=== PATIENT | female | born 1965 | race Caucasian/White ===

== ENCOUNTER 2025-01-11 17:38 | Emergency (ER) | payer OTHER ==
[~2025-01-11] VITALS: Ht 160 cm; Wt 60.0 kg
[2025-01-11] MEDS ORDERED: LIDO1ADH93 TD (21:00)
[2025-01-11] MEDS ORDERED: METH-1164 PO (21:00)
[2025-01-11] MEDS ORDERED: MEDR4PAK PO (21:03)
[2025-01-11] MEDS: METHOCARBAMOL 1,000 MG/10 ML VIAL IM ONE (21:04)
[2025-01-11] MEDS: KETOROLAC 60 MG/2 ML VIAL IM ONE (21:05)
[2025-01-11] MEDS: LIDOCAINE 5% PATCH TD ONE (21:08)
[2025-01-11 21:25] VITALS: BP 149/76; TEMP 97.6; O2SAT 99
== END 2025-01-11 21:26 | disposition home or self-care (01) ==
LOC: M ED 17:38
DX: S39.012A Strain of muscle, fascia and tendon of lower back, initial encounter (principal); S33.5XXA Sprain of ligaments of lumbar spine, initial encounter; X50.0XXA Overexertion from strenuous movement or load, initial encounter; Y92.9 Unspecified place or not applicable; Y93.9 Activity, unspecified; Y99.9 Unspecified external cause status; E03.9 Hypothyroidism, unspecified; F17.200 Nicotine dependence, unspecified, uncomplicated
CPT/HCPCS: 96372; 99283; J1885; J2800; J2919